=== PATIENT | male | born 1970 | race Caucasian/White ===

== ENCOUNTER 2017-05-02 11:33 | Emergency (ER) | payer OTHER | END 2017-05-02 13:19 | disposition home or self-care (01) | LOC: FER 11:33 | DX: S20.211A Contusion of right front wall of thorax, initial encounter (principal); W11.XXXA Fall on and from ladder, initial encounter; Y92.009 Unspecified place in unspecified non-institutional (private) residence as the place of occurrence of the external cause | CPT/HCPCS: 71020; 71100; 99283 ==